=== PATIENT | male | born 1950 | race Caucasian/White ===

== ENCOUNTER → 2016-11-09 | Day surgery (SDC) | payer MEDICARE ==
[~2016-11-09] MED LIST: AMLO10TA2 PO; HYDROmorphone 2 MG/ML VIAL IV PRN; IV RINGERS,LACTATED 1000ML 1,000 ML IV SCH; LIDOCAINE 1% 1 ML SYRINGE. ID PRN; LISI40TA PO; MORPHINE SULFATE 2 MG/ML DISP.SYRIN. IV PRN; ONDANSETRON PF 4 MG/2 ML VIAL. IV PRN; PROCHLORPERAZINE 10 MG/2 ML VIAL. IV PRN; PROPOFOL 20 ML IV ONE; fentaNYL PF VIAL 100 MCG/2 ML VIAL IV PRN
[2016-11-09 09:00] VITALS: BP 110/74
--- NOTE | 2016-11-11 11:23 | PATHOLOGY ---
PATHOLOGY REPORT * * * * * * * * FINAL DIAGNOSIS: A. Colonic mucosa, "rectal polyp biopsy": - Tubular adenoma. - There is no evidence of high-grade dysplasia or malignancy. B. Colonic mucosa, "transverse colon polyp biopsy": - Tubular adenoma. - There is no evidence of high-grade dysplasia or malignancy. (SHA:; d/t: 11/10/16) REPORT ELECTRONICALLY SIGNED BY: Reuben Hazel M.D. DATE/TIME: 11/11/2016 11:22 * * * * * * * * GROSS PATHOLOGY: A. Received in formalin labeled "Christie Orr, rectal polyp," is a segment of martinez soft tissue measuring 0.6 cm in maximum dimension. The specimen is submitted entirely in cassette A1. B. Received in formalin labeled "Christie Orr, transverse colon polyp," is a 0.9 x 0.6 x 0.4 cm polypoid piece of martinez soft tissue. The margin is inked and the tissue is sectioned perpendicular to the margin and submitted in its entirety in cassette B1. (CAA; 11/10/2016) INITIAL CPT CODE(S): A; 87409 B; 55003 Professional services performed [place] [facility] [address] Technical services performed by [facility] at [address] [place] [address]. SPECIMEN(S) RECEIVED: A.Rectal polyp B.Transverse colon polyp CLINICAL HISTORY: Screening PATIENT: CHRISTIE ORR /AGE: 702/08/1950 (Age: 66) PATIENT #: [id number] ALT CASE #: SPECIMEN COLLECTION DATE: 11/09/2016 SPECIMEN RECEIVED DATE: 11/09/2016 [facility] - [address] [place] [address] - PHONE: [phone] * * * END OF REPORT * * *
== END | disposition home or self-care (01) ==
LOC: ENDOS 06:48
PROVIDERS: ATTEND Internal Medicine Gastroenterology
DX: Z12.11 Encounter for screening for malignant neoplasm of colon (principal); K62.1 Rectal polyp; D12.3 Benign neoplasm of transverse colon; K64.0 First degree hemorrhoids; I10 Essential (primary) hypertension
CPT/HCPCS: 45385; 88305; 99156; J2704